=== PATIENT | female | born 1995 | race Two or more races ===

== ENCOUNTER 2024-11-08 09:01 | Emergency (ER) | payer MEDICAID ==
[~2024-11-08] VITALS: Ht 175.3 cm; Wt 68.0 kg
[2024-11-08 09:08] VITALS: BP 104/63; TEMP 98.7
[2024-11-08] MEDS ORDERED: CLIN300C12 PO (09:20)
[2024-11-08 09:30] VITALS: O2SAT 100
== END 2024-11-08 09:30 | disposition home or self-care (01) ==
LOC: ER 09:07
DX: L73.2 Hidradenitis suppurativa (principal); Z88.0 Allergy status to penicillin